=== PATIENT | female | born 1970 | race Caucasian/White ===

== ENCOUNTER 2023-09-10 11:29 | Outpatient (CLI) | payer OTHER ==
[~2023-09-10 11:29] MED LIST: ESCITALOPRAM OX10 MG PO; TOPROL XL25 M1; XANAX0.25 MG PO
== END 2023-09-10 11:35 | disposition home or self-care (01) ==
LOC: SONOGRAMA 11:29
PROVIDERS: ATTEND Pathology Anatomic Pathology & Clinical Pathology
DX: D44.0 Neoplasm of uncertain behavior of thyroid gland (principal); D34 Benign neoplasm of thyroid gland; E07.89 Other specified disorders of thyroid; E04.2 Nontoxic multinodular goiter